=== PATIENT | female | born 1930 | race Caucasian/White ===

== ENCOUNTER 2017-03-20 18:29 | Emergency (ER) | payer MEDICARE, BC ==
[~2017-03-20] VITALS: Ht 154.9 cm; Wt 63.6 kg
[2017-03-20 18:34] VITALS: TEMP 96.5
[2017-03-20] MEDS ORDERED: TYLENOL 325MG325 MG PO (18:42)
[2017-03-20] MEDS ORDERED: ULTRAM ER100 MG PO (18:43)
[2017-03-20] MEDS ORDERED: PRILOSEC 20MG20 MG PO (18:43)
[2017-03-20] MEDS ORDERED: XANAX .25M0.25 MG/TA PO (18:44)
[2017-03-20] MEDS ORDERED: AZOPT 10 ML10 ML OD (18:45)
[2017-03-20] MEDS ORDERED: RT ADVAIR 228 DISKUS IH (18:45)
[2017-03-20] MEDS ORDERED: ULTRAM 50MG TAB50 MG PO (18:46)
[2017-03-20] MEDS ORDERED: COSAMIN DS 4001 CA1 PO (18:47)
[2017-03-20] MEDS ORDERED: BENEFIBER (18:47)
[2017-03-20] MEDS ORDERED: VITAMINC1000TA (18:56)
[2017-03-20] MEDS ORDERED: TOPROL XL 25MG25 MG PO (18:56)
[2017-03-20] MEDS ORDERED: FLORAJEN BIFIDO1 CAP PO (18:57)
[2017-03-20] MEDS ORDERED: PLAVIX 75MG TAB75 MG PO (18:57)
[2017-03-20] MEDS ORDERED: BENTYL 10MG10 MG/CAP PO (18:58)
[2017-03-20] MEDS ORDERED: NEURONTIN100 MG/CAP PO (18:59)
[2017-03-20] MEDS ORDERED: PAMELOR 10MG10 MG PO (18:59)
[2017-03-20] MEDS ORDERED: MIRAPEX0.25 MG PO (19:00)
[2017-03-20] MEDS ORDERED: FENTANYL 25 MCG TD (19:01)
[2017-03-20] MEDS ORDERED: SINGULAIR 110 MG/TAB PO (19:01)
[2017-03-20] MEDS ORDERED: THIAMINE I200 MG/2 M IJ (19:10)
[2017-03-20 19:24] LABS: ADJUSTED CALCIUM 9.4 mg/dL (8.4-10.2); ALANINE AMINOTRANSFERASE 35 U/L (9-52); ALBUMIN 3.9 gm/dL (3.5-5.0); ALKALINE PHOSPHATASE 68 U/L (50-136); ANION GAP 9 mmol/L (7-16); BILIRUBIN,TOTAL 0.7 mg/dL (0.0-1.0); BLOOD UREA NITROGEN 10 mg/dL (7-17); CALCIUM 9.3 mg/dL (8.4-10.2); CARBON DIOXIDE 29 mmol/L (22-30); CHLORIDE 94 mmol/L (98-107); CREATININE, serum 0.59 mg/dL (0.52-1.25); GLUCOSE 106 mg/dL (74-106); LIPASE 24 U/L (23-300); POTASSIUM 3.9 mmol/L (3.4-5.0); SODIUM 132 mmol/L (137-145); TOTAL PROTEIN 6.7 gm/dL (6.4-8.2)
[2017-03-20 19:26] LABS: C-REACTIVE PROTEIN 0.5 mg/dL (0.0-0.9)
[2017-03-20 19:33] LABS: TROPONIN-I < 0.012 ng/mL (0.000-0.034)
[2017-03-20 19:40] LABS: PH 8 (5-8); SQUAMOUS EPITHELIAL 0-2 /hpf; URINE APPEARANCE Clear; URINE BACTERIA Occasional /hpf; URINE BILIRUBIN Negative (NEGATIVE); URINE BLOOD 1+ (NEGATIVE); URINE COLOR Yellow; URINE GLUCOSE Negative (NEGATIVE); URINE KETONE Negative (NEGATIVE); URINE UROBILINOGEN Negative (NEGATIVE)
[2017-03-20 19:42] LABS: CREATINE KINASE 27 U/L (30-135)
[2017-03-20 19:54] LABS: BASO # 0.1 (0.0-0.2); BASO % 0.9 % (0.0-2.0); EOS # 0.2 (0.0-0.7); EOS % 2.3 % (0-4.0); GRAN # 3.5 (1.4-6.5); GRAN % 53.5 % (42.2-75.2); HEMATOCRIT 41.8 % (37.0-47.0); HEMOGLOBIN 14.2 g/dl (12.5-16.0); LYMPH # 2.2 (1.2-3.4); LYMPH % 34.2 % (20.0-51.0); MEAN CELL VOLUME 104 fl (80.0-100.0); MEAN CORPUSCULAR HEMOGLOBIN 35 pg (27.0-31.0); MEAN CORPUSCULAR HGB CONC 34 g/dl (33.0-37.0); MONO # 0.6 (0.1-0.6); MONO % 8.8 % (1.7-9.3); PLATELET COUNT 196 K/mm3 (130-400); RED BLOOD COUNT 4.01 M/mm3 (4.10-5.30); REDCELL DISTRIBUTION WIDTH-CV 12.4 % (11.5-14.5); WHITE BLOOD COUNT 6.5 K/mm3 (4.8-10.8)
[2017-03-20 19:58] LABS: INR 1.1 (0.8-3.0); PROTHROMBIN TIME 11.7 SECONDS (9.7-12.8)
[2017-03-20] MEDS ORDERED: OMNICEF 300MG300 MG PO (21:25)
[2017-03-20 21:41] VITALS: BP 105/73; PULSE 86
== END 2017-03-20 21:41 | disposition home or self-care (01) ==
LOC: COL.ER 18:29
PROVIDERS: Emergency Medicine
DX: N39.0 Urinary tract infection, site not specified (principal); R53.1 Weakness; J44.9 Chronic obstructive pulmonary disease, unspecified; K21.9 Gastro-esophageal reflux disease without esophagitis; F41.9 Anxiety disorder, unspecified; I51.7 Cardiomegaly; B96.1 Klebsiella pneumoniae [K. pneumoniae] as the cause of diseases classified elsewhere
CPT/HCPCS: J0696; J7030

== ENCOUNTER 2017-03-23 20:12 | Emergency (ER) | payer MEDICARE, BC ==
[~2017-03-23] VITALS: Ht 149.9 cm; Wt 65.5 kg
[~2017-03-23 20:12] MED LIST: AZOPT 10 ML10 ML OD; BENEFIBER; BENTYL 10MG10 MG/CAP PO; COSAMIN DS 4001 CA1 PO; FENTANYL 25 MCG TD; FLORAJEN BIFIDO1 CAP PO; MIRAPEX0.25 MG PO; NEURONTIN100 MG/CAP PO; OMNICEF 300MG300 MG PO; PAMELOR 10MG10 MG PO; PLAVIX 75MG TAB75 MG PO; PRILOSEC 20MG20 MG PO; RT ADVAIR 228 DISKUS IH; SINGULAIR 110 MG/TAB PO; THIAMINE I200 MG/2 M IJ; TOPROL XL 25MG25 MG PO; TYLENOL 325MG325 MG PO; ULTRAM 50MG TAB50 MG PO; ULTRAM ER100 MG PO; VITAMINC1000TA; XANAX .25M0.25 MG/TA PO
[2017-03-23 20:26] VITALS: TEMP 97
[2017-03-23 21:02] LABS: BASO # 0.1 (0.0-0.2); BASO % 0.9 % (0.0-2.0); EOS # 0.1 (0.0-0.7); EOS % 1.7 % (0-4.0); GRAN # 4.4 (1.4-6.5); GRAN % 68.7 % (42.2-75.2); HEMATOCRIT 43.3 % (37.0-47.0); HEMOGLOBIN 15.1 g/dl (12.5-16.0); LYMPH # 1.3 (1.2-3.4); LYMPH % 20.9 % (20.0-51.0); MEAN CELL VOLUME 102 fl (80.0-100.0); MEAN CORPUSCULAR HEMOGLOBIN 36 pg (27.0-31.0); MEAN CORPUSCULAR HGB CONC 35 g/dl (33.0-37.0); MEAN PLATELET VOLUME 8.1 fl (7.4-10.4); MONO # 0.5 (0.1-0.6); MONO % 7.5 % (1.7-9.3); PLATELET COUNT 224 K/mm3 (130-400); RED BLOOD COUNT 4.23 M/mm3 (4.10-5.30); REDCELL DISTRIBUTION WIDTH-CV 12.3 % (11.5-14.5); WHITE BLOOD COUNT 6.4 K/mm3 (4.8-10.8)
[2017-03-23 21:15] LABS: ADJUSTED CALCIUM 9.2 mg/dL (8.4-10.2); ALANINE AMINOTRANSFERASE 30 U/L (9-52); ALBUMIN 4.3 gm/dL (3.5-5.0); ALKALINE PHOSPHATASE 72 U/L (50-136); ANION GAP 12 mmol/L (7-16); BILIRUBIN,TOTAL 0.8 mg/dL (0.0-1.0); BLOOD UREA NITROGEN 10 mg/dL (7-17); CALCIUM 9.4 mg/dL (8.4-10.2); CARBON DIOXIDE 24 mmol/L (22-30); CHLORIDE 93 mmol/L (98-107); CREATININE, serum 0.56 mg/dL (0.52-1.25); GLUCOSE 127 mg/dL (74-106); POTASSIUM 4.1 mmol/L (3.4-5.0); SODIUM 129 mmol/L (137-145); TOTAL PROTEIN 7.2 gm/dL (6.4-8.2)
[2017-03-23 21:17] LABS: C-REACTIVE PROTEIN 0.5 mg/dL (0.0-0.9)
[2017-03-23 21:24] LABS: PH 7 (5-8); SQUAMOUS EPITHELIAL 0-2 /hpf; URINE APPEARANCE Clear; URINE BACTERIA None Seen /hpf; URINE BILIRUBIN Negative (NEGATIVE); URINE BLOOD Negative (NEGATIVE); URINE COLOR Straw; URINE GLUCOSE Negative (NEGATIVE); URINE KETONE Negative (NEGATIVE); URINE RBC 0-2 /hpf; URINE UROBILINOGEN Negative (NEGATIVE); URINE WBC 0-2 /hpf
[2017-03-23 21:24] LABS: TROPONIN-I < 0.012 ng/mL (0.000-0.034)
[2017-03-23] MEDS ORDERED: PAMELOR 10MG10 MG PO (22:49)
[2017-03-23] MEDS ORDERED: NEURONTIN100 MG/CAP PO (22:50)
[2017-03-24 00:06] VITALS: BP 124/66; PULSE 81
== END 2017-03-23 23:59 | disposition home or self-care (01) ==
LOC: COL.ER 20:12
PROVIDERS: Emergency Medicine
DX: N39.0 Urinary tract infection, site not specified (principal); R53.1 Weakness; I10 Essential (primary) hypertension; K21.9 Gastro-esophageal reflux disease without esophagitis
CPT/HCPCS: J0696; J7030; Q9967

== ENCOUNTER 2017-05-29 08:07 | Emergency (ER) | payer MEDICARE, BC ==
[~2017-05-29] VITALS: Ht 149.9 cm; Wt 64.5 kg
[2017-05-29 08:10] VITALS: TEMP 98.4
[2017-05-29 09:21] LABS: BASO % 0.6 % (0.0-2.0); EOS # 0.2 (0.0-0.7); EOS % 2.9 % (0-4.0); GRAN # 4.2 (1.4-6.5); HEMATOCRIT 42.7 % (37.0-47.0); HEMOGLOBIN 14.5 g/dl (12.5-16.0); LYMPH # 1.7 (1.2-3.4); LYMPH % 25.2 % (20.0-51.0); MEAN CELL VOLUME 106 fl (80.0-100.0); MEAN CORPUSCULAR HEMOGLOBIN 36 pg (27.0-31.0); MEAN CORPUSCULAR HGB CONC 34 g/dl (33.0-37.0); MEAN PLATELET VOLUME 8.5 fl (7.4-10.4); MONO # 0.7 (0.1-0.6); PLATELET COUNT 231 K/mm3 (130-400); RED BLOOD COUNT 4.04 M/mm3 (4.10-5.30); REDCELL DISTRIBUTION WIDTH-CV 12.4 % (11.5-14.5); WHITE BLOOD COUNT 6.8 K/mm3 (4.8-10.8)
[2017-05-29 09:25] LABS: PH 5 (5-8); SQUAMOUS EPITHELIAL 0-2 /hpf; URINE APPEARANCE Hazy; URINE BILIRUBIN Negative (NEGATIVE); URINE BLOOD Negative (NEGATIVE); URINE COLOR Yellow; URINE GLUCOSE Negative (NEGATIVE); URINE KETONE Negative (NEGATIVE); URINE RBC 0-2 /hpf; URINE UROBILINOGEN Negative (NEGATIVE)
[2017-05-29 09:27] LABS: URINE WBC >50 /hpf
[2017-05-29 09:34] LABS: URINE BACTERIA Moderate /hpf
[2017-05-29 10:26] LABS: ADJUSTED CALCIUM 8.6 mg/dL (8.4-10.2); ALBUMIN 3.6 gm/dL (3.5-5.0); BILIRUBIN,TOTAL 0.7 mg/dL (0.0-1.0); C-REACTIVE PROTEIN 1.7 mg/dL (0.0-0.9); CALCIUM 8.3 mg/dL (8.4-10.2); CREATININE, serum 0.58 mg/dL (0.52-1.25); PHOSPHOROUS 3.4 mg/dL (2.5-4.5); POTASSIUM 4.3 mmol/L (3.4-5.0); TOTAL PROTEIN 6.4 gm/dL (6.4-8.2)
[2017-05-29] MEDS ORDERED: OMNICEF 300MG300 MG PO (10:51)
[2017-05-29 11:09] VITALS: BP 134/68; PULSE 66
== END 2017-05-29 11:06 | disposition home or self-care (01) ==
LOC: COL.ER 08:07
PROVIDERS: Emergency Medicine
DX: N39.0 Urinary tract infection, site not specified (principal); I10 Essential (primary) hypertension; K21.9 Gastro-esophageal reflux disease without esophagitis; J45.909 Unspecified asthma, uncomplicated; Z90.49 Acquired absence of other specified parts of digestive tract; Z90.710 Acquired absence of both cervix and uterus; Z86.73 Personal history of transient ischemic attack (TIA), and cerebral infarction without residual deficits
CPT/HCPCS: J0696; J7030

== ENCOUNTER 2018-08-12 14:35 | Emergency (ER) | payer MEDICARE, BC ==
[~2018-08-12] VITALS: Ht 149.9 cm; Wt 63.6 kg
[~2018-08-12 14:35] MED LIST changes: +FLORAJEN A20 Billion
[2018-08-12 14:40] VITALS: TEMP 98
[2018-08-12 14:56] LABS: COLLECTION METHOD CLEAN CATCH
[2018-08-12 15:14] LABS: BUDDING YEAST Present /hpf; PH 8 (5-8); URINE APPEARANCE Hazy; URINE BACTERIA None Seen /hpf; URINE BILIRUBIN Negative (NEGATIVE); URINE BLOOD Negative (NEGATIVE); URINE COLOR Yellow; URINE GLUCOSE Negative (NEGATIVE); URINE KETONE Negative (NEGATIVE); URINE LEUKOCYTE ESTERASE 3+ (NEGATIVE); URINE NITRATE Negative (NEGATIVE); URINE PROTEIN(semi-quant) Negative (NEGATIVE); URINE RBC 0-2 /hpf; URINE UROBILINOGEN Negative (NEGATIVE)
[2018-08-12 15:20] LABS: BASO # 0.1 (0.0-0.2); BASO % 0.7 % (0.0-2.0); EOS # 0.1 (0.0-0.7); EOS % 1.6 % (0-4.0); GRAN # 4.7 (1.4-6.5); HEMATOCRIT 45.2 % (37.0-47.0); HEMOGLOBIN 15.7 g/dl (12.5-16.0); LYMPH # 1.9 (1.2-3.4); LYMPH % 26.1 % (20.0-51.0); MEAN CELL VOLUME 103 fl (80.0-100.0); MEAN CORPUSCULAR HEMOGLOBIN 36 pg (27.0-31.0); MEAN CORPUSCULAR HGB CONC 35 g/dl (33.0-37.0); MEAN PLATELET VOLUME 8.3 fl (7.4-10.4); MONO # 0.5 (0.1-0.6); MONO % 7.2 % (1.7-9.3); PLATELET COUNT 303 K/mm3 (130-400); RED BLOOD COUNT 4.38 M/mm3 (4.10-5.30)
[2018-08-12 15:34] LABS: ALBUMIN 4.1 gm/dL (3.5-5.0); BILIRUBIN,TOTAL 0.5 mg/dL (0.0-1.0); CREATININE, serum 0.49 mg/dL (0.52-1.25); POTASSIUM 3.9 mmol/L (3.4-5.0); TOTAL PROTEIN 7.2 gm/dL (6.4-8.2)
[2018-08-12] MEDS ORDERED: BENTYL 10MG10 MG/CAP PO (15:48)
[2018-08-12] MEDS ORDERED: OMNICEF 300MG300 MG PO (15:55)
[2018-08-12 16:49] VITALS: BP 129/77; PULSE 94
== END 2018-08-12 16:52 | disposition home or self-care (01) ==
LOC: COL.ER 14:35
PROVIDERS: Family Medicine
DX: N39.0 Urinary tract infection, site not specified (principal); Z79.51 Long term (current) use of inhaled steroids; Z79.02 Long term (current) use of antithrombotics/antiplatelets
CPT/HCPCS: J0696; J2405; J7030

== ENCOUNTER 2018-08-16 08:15 | Observation (INO) | payer MEDICARE, BC ==
[~2018-08-16] VITALS: Ht 149.9 cm; Wt 65.4 kg
[~2018-08-16 08:15] MED LIST changes: -ULTRAM ER100 MG PO
[2018-08-16 08:52] LABS: BASO # 0.1 (0.0-0.2); BASO % 0.8 % (0.0-2.0); EOS # 0.2 (0.0-0.7); EOS % 2.7 % (0-4.0); GRAN # 5.5 (1.4-6.5); GRAN % 61.5 % (42.2-75.2); HEMATOCRIT 43.3 % (37.0-47.0); LYMPH # 2.4 (1.2-3.4); LYMPH % 26.4 % (20.0-51.0); MEAN CELL VOLUME 105 fl (80.0-100.0); MEAN CORPUSCULAR HEMOGLOBIN 36 pg (27.0-31.0); MEAN CORPUSCULAR HGB CONC 35 g/dl (33.0-37.0); MEAN PLATELET VOLUME 8.2 fl (7.4-10.4); MONO # 0.8 (0.1-0.6); MONO % 8.4 % (1.7-9.3); PLATELET COUNT 259 K/mm3 (130-400); RED BLOOD COUNT 4.14 M/mm3 (4.10-5.30); REDCELL DISTRIBUTION WIDTH-CV 13.4 % (11.5-14.5)
[2018-08-16 09:05] LABS: ALANINE AMINOTRANSFERASE 33 U/L (9-52); ALBUMIN 4.1 gm/dL (3.5-5.0); ALKALINE PHOSPHATASE 70 U/L (50-136); ANION GAP 7 mmol/L (7-16); AST,SGOT 25 U/L (15-37); BILIRUBIN,TOTAL 0.5 mg/dL (0.0-1.0); BLOOD UREA NITROGEN 13 mg/dL (7-17); C-REACTIVE PROTEIN 0.7 mg/dL (0.0-0.9); CALCIUM 8.7 mg/dL (8.4-10.2); CARBON DIOXIDE 32 mmol/L (22-30); CHLORIDE 92 mmol/L (98-107); CREATININE, serum 0.59 mg/dL (0.52-1.25); GLUCOSE 81 mg/dL (74-106); POTASSIUM 3.9 mmol/L (3.4-5.0); SODIUM 131 mmol/L (137-145); TOTAL PROTEIN 7.1 gm/dL (6.4-8.2)
[2018-08-16 09:18] LABS: TROPONIN-I < 0.012 ng/mL (0.000-0.034)
[2018-08-16 09:28] LABS: COLLECTION METHOD CATHETER
[2018-08-16 09:37] LABS: PH 8 (5-8); SQUAMOUS EPITHELIAL 0-2 /hpf; URINE APPEARANCE Clear; URINE BACTERIA None Seen /hpf; URINE BILIRUBIN Negative (NEGATIVE); URINE BLOOD Negative (NEGATIVE); URINE COLOR Yellow; URINE GLUCOSE Negative (NEGATIVE); URINE KETONE Negative (NEGATIVE); URINE LEUKOCYTE ESTERASE Negative (NEGATIVE); URINE NITRATE Negative (NEGATIVE); URINE PROTEIN(semi-quant) Negative (NEGATIVE); URINE UROBILINOGEN Negative (NEGATIVE)
[2018-08-16 11:34] VITALS: BP 127/67; PULSE 88; TEMP 98.2
[2018-08-16] MEDS ORDERED: FD GUARD (11:53)
[2018-08-16] MEDS ORDERED: MIRALAX PA17 GM/Dose PO (12:36)
[2018-08-16] MEDS ORDERED: [UNRECOGNIZED DRUG - OTHER] (13:46)
[2018-08-16] MEDS ORDERED: B12 SL (13:49)
[2018-08-16] MEDS ORDERED: NEURONTIN100 MG/CAP PO (14:08)
[2018-08-16 16:34] VITALS: BP 124/71; PULSE 83; TEMP 98.4
[2018-08-16 21:12] VITALS: BP 132/65; PULSE 84; TEMP 98.8
[2018-08-17 02:13] VITALS: BP 141/70; PULSE 83; TEMP 98.3
[2018-08-17 05:38] VITALS: BP 136/75; PULSE 76; TEMP 97.9
[2018-08-17 06:05] LABS: BASO # 0.1 (0.0-0.2); EOS # 0.3 (0.0-0.7); EOS % 4.6 % (0-4.0); GRAN # 3.2 (1.4-6.5); GRAN % 52.6 % (42.2-75.2); HEMATOCRIT 42.5 % (37.0-47.0); HEMOGLOBIN 14.1 g/dl (12.5-16.0); LYMPH # 1.9 (1.2-3.4); LYMPH % 31.9 % (20.0-51.0); MEAN CELL VOLUME 106 fl (80.0-100.0); MEAN CORPUSCULAR HEMOGLOBIN 35 pg (27.0-31.0); MEAN CORPUSCULAR HGB CONC 33 g/dl (33.0-37.0); MEAN PLATELET VOLUME 8.3 fl (7.4-10.4); MONO # 0.6 (0.1-0.6); MONO % 9.6 % (1.7-9.3); PLATELET COUNT 240 K/mm3 (130-400); REDCELL DISTRIBUTION WIDTH-CV 13.1 % (11.5-14.5)
[2018-08-17 06:17] LABS: CALCIUM 8.3 mg/dL (8.4-10.2); CHOLESTEROL RISK RATIO 3.7; CREATININE, serum 0.53 mg/dL (0.52-1.25); POTASSIUM 3.9 mmol/L (3.4-5.0)
[2018-08-17 07:34] VITALS: BP 145/68; PULSE 77; TEMP 97.7
[2018-08-17] MEDS ORDERED: BENTYL 10MG10 MG/CAP PO (10:32)
== END 2018-08-17 12:03 | disposition home health service (06) ==
LOC: COL.ER 08:15 → MEDICAL 10:13
PROVIDERS: Emergency Medicine; Physician Assistant
DX: R26.9 Unspecified abnormalities of gait and mobility (principal); R47.01 Aphasia; E87.1 Hypo-osmolality and hyponatremia; N39.0 Urinary tract infection, site not specified; J45.909 Unspecified asthma, uncomplicated; K21.9 Gastro-esophageal reflux disease without esophagitis; F41.9 Anxiety disorder, unspecified; G25.81 Restless legs syndrome; G89.29 Other chronic pain; M19.90 Unspecified osteoarthritis, unspecified site; G62.9 Polyneuropathy, unspecified; K58.9 Irritable bowel syndrome, unspecified; Z86.73 Personal history of transient ischemic attack (TIA), and cerebral infarction without residual deficits; Z90.49 Acquired absence of other specified parts of digestive tract; Z96.643 Presence of artificial hip joint, bilateral; Z90.710 Acquired absence of both cervix and uterus; Z82.49 Family history of ischemic heart disease and other diseases of the circulatory system; Z82.5 Family history of asthma and other chronic lower respiratory diseases; Z83.3 Family history of diabetes mellitus; Z88.6 Allergy status to analgesic agent; Z88.8 Allergy status to other drugs, medicaments and biological substances
CPT/HCPCS: A9585; G0378; G8978-GP; G8979-GP; G8987-GO; G8988-GO; G9162-GN; G9163-GN; G9164-GN; J1650; J7030

== ENCOUNTER → 2018-11-15 | Outpatient (CLI) | payer MEDICARE, BC ==
[~2018-11-15] MED LIST changes: +B12 SL; +FD GUARD; +MIRALAX PA17 GM/Dose PO; +[UNRECOGNIZED DRUG - OTHER]
== END ==
LOC: COL.RAD 07:25
DX: Z01.818 Encounter for other preprocedural examination (principal); R10.30 Lower abdominal pain, unspecified; K76.9 Liver disease, unspecified; J98.4 Other disorders of lung; M47.816 Spondylosis without myelopathy or radiculopathy, lumbar region; M41.86 Other forms of scoliosis, lumbar region; Z98.890 Other specified postprocedural states; Z90.710 Acquired absence of both cervix and uterus; Z96.643 Presence of artificial hip joint, bilateral; Z90.49 Acquired absence of other specified parts of digestive tract
CPT/HCPCS: Q9967

== ENCOUNTER 2018-12-11 12:47 | Emergency (ER) | payer MEDICARE, BC ==
[~2018-12-11] VITALS: Ht 149.9 cm; Wt 61.8 kg
[2018-12-11 12:53] VITALS: TEMP 97
[2018-12-11 13:28] LABS: COLLECTION METHOD CATHETER
[2018-12-11] MEDS ORDERED: ULTRAM ER100 MG PO (13:34)
[2018-12-11] MEDS ORDERED: ULTRAM 50MG TAB50 MG PO (13:34)
[2018-12-11] MEDS ORDERED: BENEFIBER ×2 (13:35)
[2018-12-11 13:40] LABS: BASO # 0.1 (0.0-0.2); EOS # 0.2 (0.0-0.7); GRAN # 4.9 (1.4-6.5); GRAN % 66.3 % (42.2-75.2); HEMATOCRIT 40.9 % (37.0-47.0); HEMOGLOBIN 14.1 g/dl (12.5-16.0); LYMPH # 1.7 (1.2-3.4); LYMPH % 22.8 % (20.0-51.0); MEAN CELL VOLUME 105 fl (80.0-100.0); MEAN CORPUSCULAR HEMOGLOBIN 36 pg (27.0-31.0); MEAN CORPUSCULAR HGB CONC 35 g/dl (33.0-37.0); MONO # 0.6 (0.1-0.6); MONO % 7.6 % (1.7-9.3); PLATELET COUNT 214 K/mm3 (130-400); REDCELL DISTRIBUTION WIDTH-CV 12.9 % (11.5-14.5)
[2018-12-11 13:41] LABS: PH 7 (5-8); SQUAMOUS EPITHELIAL 0-2 /hpf; URINE APPEARANCE Clear; URINE BACTERIA None Seen /hpf; URINE BILIRUBIN Negative (NEGATIVE); URINE BLOOD 1+ (NEGATIVE); URINE COLOR Yellow; URINE GLUCOSE Negative (NEGATIVE); URINE KETONE Negative (NEGATIVE); URINE LEUKOCYTE ESTERASE 2+ (NEGATIVE); URINE NITRATE Negative (NEGATIVE); URINE PROTEIN(semi-quant) Negative (NEGATIVE); URINE RBC 0-2 /hpf; URINE UROBILINOGEN Negative (NEGATIVE)
[2018-12-11] MEDS ORDERED: VITAMINC1000TA (13:44)
[2018-12-11] MEDS ORDERED: COSAMIN DS 4001 TAB PO (13:44)
[2018-12-11] MEDS ORDERED: PLAVIX 75MG TAB75 MG PO (13:45)
[2018-12-11] MEDS ORDERED: FLORAJEN A20 Billion (13:46)
[2018-12-11] MEDS ORDERED: [UNRECOGNIZED DRUG - OTHER] (13:46)
[2018-12-11] MEDS ORDERED: FD GARD (13:47)
[2018-12-11] MEDS ORDERED: NEURONTIN100 MG/CAP PO (13:48)
[2018-12-11] MEDS ORDERED: SINGULAIR 110 MG/TAB PO (13:49)
[2018-12-11] MEDS ORDERED: FENTANYL 12MCG TD (13:50)
[2018-12-11] MEDS ORDERED: VITAMIN B12 PO (13:51)
[2018-12-11] MEDS ORDERED: ALLERGY INJECTION (13:51)
[2018-12-11 13:52] LABS: ALBUMIN 3.7 gm/dL (3.5-5.0); BILIRUBIN,TOTAL 0.4 mg/dL (0.0-1.0); CALCIUM 8.6 mg/dL (8.4-10.2); CREATININE, serum 0.53 mg/dL (0.52-1.25); POTASSIUM 3.9 mmol/L (3.4-5.0); TOTAL PROTEIN 6.4 gm/dL (6.4-8.2)
[2018-12-11] MEDS ORDERED: OMNICEF 300MG300 MG PO (14:22)
[2018-12-11 14:44] VITALS: BP 159/92; PULSE 99
== END 2018-12-11 14:47 | disposition home or self-care (01) ==
LOC: COL.ER 12:47
PROVIDERS: Family Medicine
DX: N30.00 Acute cystitis without hematuria (principal); F03.90 Unspecified dementia, unspecified severity, without behavioral disturbance, psychotic disturbance, mood disturbance, and anxiety; Z79.02 Long term (current) use of antithrombotics/antiplatelets; Z79.51 Long term (current) use of inhaled steroids
CPT/HCPCS: J0696

== ENCOUNTER 2019-02-28 09:34 | Emergency (ER) | payer MEDICARE, BC ==
[~2019-02-28] VITALS: Ht 149.9 cm; Wt 61.4 kg
[~2019-02-28 09:34] MED LIST changes: +ALLERGY INJECTION; +COSAMIN DS 4001 TAB PO; +FD GARD; +FENTANYL 12MCG TD; +ULTRAM ER100 MG PO; +VITAMIN B12 PO; +[UNRECOGNIZED DRUG - OTHER]
[2019-02-28 09:42] VITALS: TEMP 98
[2019-02-28 10:05] LABS: BASO # 0.1 (0.0-0.2); BASO % 0.6 % (0.0-2.0); EOS # 0.1 (0.0-0.7); EOS % 1.2 % (0-4.0); GRAN # 6.1 (1.4-6.5); GRAN % 68.9 % (42.2-75.2); HEMATOCRIT 42.3 % (37.0-47.0); HEMOGLOBIN 14.8 g/dl (12.5-16.0); LYMPH # 1.9 (1.2-3.4); LYMPH % 21.5 % (20.0-51.0); MEAN CELL VOLUME 105 fl (80.0-100.0); MEAN CORPUSCULAR HEMOGLOBIN 37 pg (27.0-31.0); MEAN CORPUSCULAR HGB CONC 35 g/dl (33.0-37.0); MONO # 0.7 (0.1-0.6); MONO % 7.4 % (1.7-9.3); PLATELET COUNT 215 K/mm3 (130-400); RED BLOOD COUNT 4.03 M/mm3 (4.10-5.30); REDCELL DISTRIBUTION WIDTH-CV 12.1 % (11.5-14.5)
[2019-02-28 10:17] LABS: ALBUMIN 3.8 gm/dL (3.5-5.0); BILIRUBIN,TOTAL 0.5 mg/dL (0.0-1.0); C-REACTIVE PROTEIN 1.3 mg/dL (0.0-0.9); CALCIUM 8.7 mg/dL (8.4-10.2); CREATININE, serum 0.51 (0.52-1.25); POTASSIUM 4.1 mmol/L (3.4-5.0); TOTAL PROTEIN 6.7 gm/dL (6.4-8.2)
[2019-02-28 10:27] LABS: COLLECTION METHOD CLEAN CATCH
[2019-02-28 10:37] LABS: PH 6 (5-8); SQUAMOUS EPITHELIAL 0-2 /hpf; URINE APPEARANCE Hazy; URINE BACTERIA Rare /hpf; URINE BILIRUBIN Negative (NEGATIVE); URINE BLOOD 2+ (NEGATIVE); URINE COLOR Yellow; URINE GLUCOSE Negative (NEGATIVE); URINE KETONE Negative (NEGATIVE); URINE LEUKOCYTE ESTERASE 3+ (NEGATIVE); URINE NITRATE Negative (NEGATIVE); URINE PROTEIN(semi-quant) Negative (NEGATIVE); URINE UROBILINOGEN Negative (NEGATIVE)
[2019-02-28] MEDS ORDERED: OMNICEF 300MG300 MG PO (11:12)
[2019-02-28 12:10] VITALS: BP 121/71; PULSE 90
== END 2019-02-28 12:15 | disposition home or self-care (01) ==
LOC: COL.ER 09:34
PROVIDERS: Family Medicine
DX: N30.00 Acute cystitis without hematuria (principal); K21.9 Gastro-esophageal reflux disease without esophagitis; K58.9 Irritable bowel syndrome, unspecified; J45.909 Unspecified asthma, uncomplicated
CPT/HCPCS: A4216; J0696

== ENCOUNTER → 2019-04-22 | Outpatient (CLI) | payer MEDICARE, BC | LOC: COL.RAD 14:59 | DX: K11.21 Acute sialoadenitis (principal); K11.6 Mucocele of salivary gland ==

== ENCOUNTER 2019-07-11 14:29 | Emergency (ER) | payer MEDICARE, BC ==
[~2019-07-11] VITALS: Ht 149.9 cm; Wt 61.4 kg
[~2019-07-11 14:29] MED LIST changes: +ILOTYCIN5 MG/GM OP
[2019-07-11 16:28] LABS: COLLECTION METHOD CLEAN CATCH
[2019-07-11 16:40] LABS: BASO % 0.5 % (0.0-2.0); EOS # 0.1 (0.0-0.7); EOS % 0.9 % (0-4.0); GRAN # 5.7 (1.4-6.5); GRAN % 66.1 % (42.2-75.2); HEMATOCRIT 44.5 % (37.0-47.0); LYMPH # 2.2 (1.2-3.4); LYMPH % 25.9 % (20.0-51.0); MEAN CELL VOLUME 105 fl (80.0-100.0); MEAN CORPUSCULAR HEMOGLOBIN 35 pg (27.0-31.0); MEAN CORPUSCULAR HGB CONC 34 g/dl (33.0-37.0); MEAN PLATELET VOLUME 7.9 fl (7.4-10.4); MONO # 0.5 (0.1-0.6); MONO % 6.1 % (1.7-9.3); PLATELET COUNT 255 K/mm3 (130-400); RED BLOOD COUNT 4.26 M/mm3 (4.10-5.30); REDCELL DISTRIBUTION WIDTH-CV 12.6 % (11.5-14.5)
[2019-07-11 16:50] LABS: C-REACTIVE PROTEIN 0.5 mg/dL (0.0-0.9)
[2019-07-11 16:58] LABS: PH 8 (5-8); SQUAMOUS EPITHELIAL 0-2 /hpf; URINE APPEARANCE Clear; URINE BACTERIA Rare /hpf; URINE BILIRUBIN Negative (NEGATIVE); URINE BLOOD Negative (NEGATIVE); URINE COLOR Straw; URINE GLUCOSE Negative (NEGATIVE); URINE KETONE Negative (NEGATIVE); URINE LEUKOCYTE ESTERASE Trace (NEGATIVE); URINE NITRATE Negative (NEGATIVE); URINE PROTEIN(semi-quant) Negative (NEGATIVE); URINE UROBILINOGEN Negative (NEGATIVE)
[2019-07-11 16:59] LABS: TROPONIN-I < 0.012 ng/mL (0.000-0.035)
[2019-07-11 17:50] VITALS: BP 142/86; PULSE 82; TEMP 98.3
== END 2019-07-11 17:50 | disposition home or self-care (01) ==
LOC: COL.ER 14:29 → MEDICAL 16:39 → COL.ER 16:39
PROVIDERS: Emergency Medicine
DX: N39.0 Urinary tract infection, site not specified (principal); Z86.73 Personal history of transient ischemic attack (TIA), and cerebral infarction without residual deficits; Z79.51 Long term (current) use of inhaled steroids

== ENCOUNTER 2019-08-04 14:30 | Emergency (ER) | payer MEDICARE, BC ==
[~2019-08-04] VITALS: Ht 149.9 cm; Wt 63.6 kg
[2019-08-04 16:27] LABS: COLLECTION METHOD CLEAN CATCH
[2019-08-04 16:38] LABS: PH 7 (5-8); URINE APPEARANCE Hazy; URINE BACTERIA Rare /hpf; URINE BILIRUBIN Negative (NEGATIVE); URINE BLOOD Negative (NEGATIVE); URINE COLOR Yellow; URINE GLUCOSE Negative (NEGATIVE); URINE KETONE Negative (NEGATIVE); URINE LEUKOCYTE ESTERASE 3+ (NEGATIVE); URINE NITRATE Negative (NEGATIVE); URINE PROTEIN(semi-quant) Negative (NEGATIVE); URINE RBC 0-2 /hpf; URINE UROBILINOGEN Negative (NEGATIVE)
[2019-08-04] MEDS ORDERED: ZITHROMAX 250M250 MG PO (17:00)
[2019-08-04 17:08] LABS: BASO % 0.5 % (0.0-2.0); EOS # 0.1 (0.0-0.7); EOS % 1.4 % (0-4.0); GRAN # 5.8 (1.4-6.5); GRAN % 69.2 % (42.2-75.2); HEMATOCRIT 44.5 % (37.0-47.0); HEMOGLOBIN 14.9 g/dl (12.5-16.0); LYMPH # 1.7 (1.2-3.4); LYMPH % 20.7 % (20.0-51.0); MEAN CELL VOLUME 107 fl (80.0-100.0); MEAN CORPUSCULAR HEMOGLOBIN 36 pg (27.0-31.0); MEAN CORPUSCULAR HGB CONC 34 g/dl (33.0-37.0); MEAN PLATELET VOLUME 8.1 fl (7.4-10.4); MONO # 0.7 (0.1-0.6); PLATELET COUNT 237 K/mm3 (130-400); RED BLOOD COUNT 4.18 M/mm3 (4.10-5.30); REDCELL DISTRIBUTION WIDTH-CV 12.9 % (11.5-14.5)
[2019-08-04 17:15] LABS: ALBUMIN 4.3 gm/dL (3.5-5.0); BILIRUBIN,TOTAL 0.4 mg/dL (0.0-1.0); CALCIUM 8.9 mg/dL (8.4-10.2); CREATININE, serum 0.58 (0.52-1.25); POTASSIUM 4.5 mmol/L (3.4-5.0); TOTAL PROTEIN 7.3 gm/dL (6.4-8.2)
[2019-08-04 17:34] VITALS: BP 140/86; PULSE 89; TEMP 98.9
[2019-08-06] MEDS ORDERED: VANTIN100 MG PO (03:36)
== END 2019-08-04 17:42 | disposition home or self-care (01) ==
LOC: COL.ER 14:30
PROVIDERS: Emergency Medicine
DX: J20.9 Acute bronchitis, unspecified (principal); Z79.02 Long term (current) use of antithrombotics/antiplatelets
CPT/HCPCS: J8540